=== PATIENT | female | born 1970 | race African-American/Black ===

== ENCOUNTER 2025-04-19 21:14 | Emergency (ER) | payer OTHER, SELFPAY ==
[2025-04-19 21:23] VITALS: RESP 18; O2SAT 99
[2025-04-19 21:26] VITALS: BP 152/99; PULSE 81; RESP 18; TEMP 36.9; O2SAT 99; BMI 33.4
--- NOTE | 2025-04-19 21:40 | ED_ITS ---
HPI - General Adult General Date Seen: 04/19/25 Chief complaint: Unspecified Complaint, Adult Stated complaint: chills, headache, wants covid test Time Seen by Provider: 04/19/25 21:40 Source: patient and RN notes reviewed Mode of arrival: ambulatory Limitations: no limitations History of Present Illness HPI narrative: Gonzalo is a very pleasant 54-year-old female with a history of known kidney disease stating last GFR of 15 who comes to the emergency room for a COVID test suggested by her primary at [facility]. Patient notes that she awoke this morning between 2 and 0400 hours with runny nose and a mild sore throat. She has had a fever up to 100.2. She has had mild cough but no difficulty breathing and no chest pain. She has had a small amount of diarrhea as well. 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 She does not know of any ill contacts a month's her work colleagues. Patient has a remote history of tobacco use, history of bronchitis. She notes that her doctor thought maybe we could do an infusion which I assume she means remdesivir if she is positive for COVID. I did tell her we no longer you do that at [facility]. Related Data Home Medications ?Medication ?Instructions ?Recorded ?Confirmed No Known Home Medications 04/19/2504/05 Allergies Allergy/AdvReac Type Severity Reaction Status Date / Time No Known Drug Allergies Allergy Verified 04/19/25 21:28 Review of Systems Status of ROS: Reports: 10 or more systems reviewed and unremarkable except as noted in History and below Const: Reports: fever, chills and fatigue Eyes: Denies: change in vision ENMT: Reports: throat pain and nasal congestion; Denies: neck pain, throat swelling or hoarseness Cardio: Denies: chest pain or shortness of breath with exertion Resp: Reports: cough; Denies: shortness of breath or wheezing GI: Reports: diarrhea; Denies: abdominal pain, nausea or vomiting : Denies: painful urination or urinary frequency Musculo: Denies: back pain or neck pain Integ/Breast: Denies: rash Endo: Reports: fatigue Allergy/Immuno: Denies: throat swelling or wheezing [facility] Medical History (Updated 04/19/25 @ 22:16 by Yue Mathew MD) Acute kidney injury superimposed on chronic kidney disease ?N17.9 - Acute kidney failure, unspecified (ICD-10) ?N18.9 - Chronic kidney disease, unspecified (ICD-10) Cerebral infarction ?I63.9 - Cerebral infarction, unspecified (ICD-10) Hypothyroidism due to acquired atrophy of thyroid ?E03.4 - Atrophy of thyroid (acquired) (ICD-10) Human immunodeficiency virus (HIV) disease ?B20 - Human immunodeficiency virus [HIV] disease (ICD-10) Diverticulosis ?K57.90 - Diverticulosis of intestine, part unspecified, without perforation or abscess without bleeding (ICD-10) Gout of right foot ?M10.9 - Gout, unspecified (ICD-10) Primary hypertension ?I10 - Essential (primary) hypertension (ICD-10) Surgical History (Updated 04/19/25 @ 21:34 by Baldo Marks RN) No significant past surgical history Social History Smoking Status: Never smoker Second hand tobacco smoke exposure: No How often do you have a drink containing alcohol: never AUDIT-C Alcohol total score: 0 Non-prescribed substance use: denies use Exam Narrative: Exam Narrative: Alert and oriented. No acute distress. Eyes are clear. Patient is mass at this time. No evidence of a muffled voice or difficulty speaking. Speech and mentation normal. Heart with a regular rate and rhythm. Lungs with distant breath sounds but present without any wheezes at this time. Abdomen is soft and nontender. Extremities moving without difficulty. Const: Vital Signs, click to edit/add: Vital Signs - 24 hr 04/19/25 21:23 04/19/25 21:26 Temperature 98.4 F Pulse Rate [Right Pulse Oximeter] 81 Respiratory Rate 18 Respiratory Rate [ Head] 18 Blood Pressure [Ri ght Upper Arm] 152/99 H Pulse Oximetry 99 Oxygen Delivery Me thod Room Air Documenting provider has reviewed patient's vital signs: yes Course Course ED Course: Differential diagnosis includes but is not limited to influenza, COVID, RSV, other respiratory infection. I do not feel the need to do chest x-ray given exam, reassuring oximetry. Patient offered Tylenol but declines at this time. Vital Signs Vital signs: Initial Vital Signs Respiratory Rate 18 04/19/25 21:23 Vital Signs Respiratory Rate 18 04/19/25 21:23 Temperature 98.4 F 04/19/25 21:26 Pulse Rate 81 04/19/25 21:26 Respiratory Rate 18 04/19/25 21:26 Blood Pressure 152/99 H 04/19/25 21:26 Pulse Oximetry 99 04/19/25 21:26 Oxygen Delivery Method Room Air 04/19/25 21:26 Medical Decision Making MDM Narrative Medical decision making narrative: 1. URI-patient has tested negative for COVID influenza and RSV. I did state that today's only day 1 of symptoms and this may be a false positive and therefore I do recommend testing tomorrow once again with a home test. I did inform patient and her that we are unable to do remdesivir infused fusions at [facility] anymore. Recommend symptomatic cares at this time. Return as needed for worsening symptoms. 2. Disposition -home at this time. Return for worsening symptoms. Recommend no work until 3 days of negative testing given the high incidence of COVID in this area. Medical Records Medical records reviewed: Yes I reviewed the patient's medical records Medical records narrative: Able to view care any everywhere outside records. Note from primary at [facility] suggesting a home COVID testing contacting them for positive status as she would be a candidate for remdesivir. Lab Data Lab results reviewed: Yes I reviewed the patient's lab results Labs: Lab Results 04/19/25 Range/Units 21:23 SARS-CoV-2 (PCR) Negative SARS-CoV-2 (Negative) Influenza Type A (PCR) Negative PCR FLU A (Negative) Influenza Type B (PCR) Negative PCR FLU B (Negative) RSV (PCR) Negative PCR RSV (Negative) Discharge Plan Discharge Clinical Impression: URI, acute Patient Disposition: Home, Self-Care Condition: Unchanged Additional Instructions: I would recommend a 2nd COVID test. You can buy these over the counter. Also you should be able to get them free from some [employer] web sites. You are welcome to return for further evaluation for worsening symptoms. We do not do remdesivir infusions here at [facility]. Prescriptions: No Action No Known Home Medications Follow Up/Referrals: Provider,Not a Local [Primary Care Provider, Family Practice] Stand Alone Forms: [employer] Info Instructions
[2025-04-19 22:07] LABS: PCR FLU A Negative PCR FLU A (Negative); PCR FLU B Negative PCR FLU B (Negative); PCR RSV Negative PCR RSV (Negative); SARS PCR* Negative SARS-CoV-2 (Negative)
[2025-04-19 22:24] VITALS: BP 145/89; PULSE 85; RESP 18; TEMP 36.9; O2SAT 99
[2025-04-19 22:31] VITALS: BP 145/89; PULSE 85; RESP 18; TEMP 36.9
== END 2025-04-19 22:31 | disposition home or self-care (01) ==
PROVIDERS: Emergency Provider Family Medicine
DX: J06.9 Acute upper respiratory infection, unspecified (principal)
CPT/HCPCS: 87631; 99283; 99284